=== PATIENT | female | born 1950 | race Caucasian/White ===

== ENCOUNTER → 2016-10-09 | Outpatient (CLI) | payer MEDICARE ==
--- NOTE | 2016-10-10 14:36 | MM ---
Reason for exam: screening (asymptomatic). Last mammogram was performed 1 year and 1 month ago. History: Patient is postmenopausal and has history of other cancer at age 58. Family history of premenopausal breast cancer in mother at age 40. Benign MG stereo VAD BX RT of the right breast, December 05, 2013. Benign left mammotome panel of the left breast, October 08, 2012. Benign left mammotome panel of the left breast, March 10, 2007. Benign left mammotome panel of the left breast, March 10, 2007. Taking estrogen for 12 years 10 months beginning at age 52. Physical Findings: A clinical breast exam by your physician is recommended on an annual basis and results should be correlated with mammographic findings. MG 3D Screening Mammo W/Cad Bilateral CC and MLO view(s) were taken. Prior study comparison: September 05, 2015, bilateral MG 3d screening mammo w/cad. June 22, 2014, right breast MG diagnostic mammo RT w CAD. The breast tissue is heterogeneously dense. This may lower the sensitivity of mammography. Finding: There are stable typically benign punctate calcifications. There is a chronic nodularity bilaterally. There is no dominant lesion. No significant changes in finding since September 05, 2015 and June 22, 2014. ASSESSMENT: Benign, BI-RAD 2 RECOMMENDATION: Routine screening mammogram of both breasts in 1 year.
== END | disposition home or self-care (01) ==
LOC: RADMAMWWP 09:44
PROVIDERS: ATTEND Obstetrics & Gynecology
DX: Z12.31 Encounter for screening mammogram for malignant neoplasm of breast (principal); Z80.3 Family history of malignant neoplasm of breast
CPT/HCPCS: 77063; G0202

== ENCOUNTER → 2017-11-20 | Outpatient (CLI) | payer MEDICARE ==
--- NOTE | 2017-11-20 14:46 | BD ---
EXAMINATION TYPE: Axial Bone Density DATE OF EXAM: 11/20/2017 COMPARISON: 01/28/2006 CLINICAL HISTORY: Height: 67 IN Weight: 130 LBS RISK FACTORS HISTORY OF: Active: YES Postmenopausal woman: AGE 46 Take estrogen and/or progesterone medications: YES How long: SINCE AGE 50 MEDICATIONS: Thyroid Medications: YES Which medication: Levothyroxine How Lon YEARS Additional Medications: VIT D, LEVOTHYROXINE, ESTRACE, CHOLESTEROL, EXAM MEASUREMENTS: Bone mineral densitometry was performed using the [employer] System. Bone mineral density as measured about the Lumbar spine is: ----- L1-L4(G/cm2): 0.996 T Score Values are as follows: ----- L2: -1.5 ----- L3: -1.8 ----- L4: -1.4 ----- L1-L4: -1.5 Bone mineral density has: Decreased -4.0% since study of: 01/28/2006 Bone mineral density about the R hip (g/cm2): 0.731 Bone mineral density about the L hip (g/cm2): 0.684 T Score values are as follows: -----R Neck: -2.2 -----L Neck: -2.5 -----R Total: -1.7 -----L Total: -1.9 Bone mineral density has: Decreased -6.5% since study of: 01/28/2006 IMPRESSION: Borderline Osteoporosis (T Score less than -2.5). There is increased fracture risk and therapy is usually indicated based on age. Re-Screen 1-2 years. NOTE: T-SCORE=SD OF THE YOUNG ADULT MEAN.
--- NOTE | 2017-11-24 07:29 | MM ---
Reason for exam: screening (asymptomatic). Last mammogram was performed 1 year and 1 month ago. History: Patient is postmenopausal and has history of other cancer at age 58. Family history of premenopausal breast cancer in mother at age 40. Benign MG stereo VAD BX RT of the right breast, December 05, 2013. Benign left mammotome panel of the left breast, October 08, 2012. Benign left mammotome panel of the left breast, March 10, 2007. Benign left mammotome panel of the left breast, March 10, 2007. Taking estrogen for 12 years 10 months beginning at age 52. Physical Findings: A clinical breast exam by your physician is recommended on an annual basis and results should be correlated with mammographic findings. MG 3D Screening Mammo W/Cad Bilateral CC and MLO view(s) were taken. Prior study comparison: October 09, 2016, bilateral MG 3d screening mammo w/cad. September 05, 2015, bilateral MG 3d screening mammo w/cad. The breast tissue is heterogeneously dense. This may lower the sensitivity of mammography. Previous mammotome biopsy in the right breast x 1 and in the left breast x 3. Nodular asymmetry medial posterior right breast does not seem to persist on the 3D images. Precautionary 6 month follow up recommended. ASSESSMENT: Probably benign, BI-RAD 3 RECOMMENDATION: Follow-up diagnostic mammogram of the right breast in 6 months.
== END | disposition home or self-care (01) ==
LOC: RADMAMWWP 09:36
PROVIDERS: ATTEND Obstetrics & Gynecology
DX: Z12.31 Encounter for screening mammogram for malignant neoplasm of breast (principal); Z13.820 Encounter for screening for osteoporosis; M81.0 Age-related osteoporosis without current pathological fracture; Z80.3 Family history of malignant neoplasm of breast
CPT/HCPCS: 77063; 77067; 77080

== ENCOUNTER → 2018-05-27 | Outpatient (CLI) | payer MEDICARE ==
--- NOTE | 2018-05-27 13:16 | MM ---
Reason for exam: follow-up at short interval from prior study. Last mammogram was performed 6 months ago. History: Patient is postmenopausal and has history of other cancer at age 58. Family history of premenopausal breast cancer in mother at age 40. Benign MG stereo VAD BX RT of the right breast, December 05, 2013. Benign left mammotome panel of the left breast, October 08, 2012. Benign left mammotome panel of the left breast, March 10, 2007. Benign left mammotome panel of the left breast, March 10, 2007. Taking estrogen for 12 years 10 months beginning at age 52. Physical Findings: Nurse did not find any significant physical abnormalities on exam. MG 3D Diag Mammo W/Cad RT CC and MLO view(s) were taken of the right breast. Prior study comparison: November 20, 2017, bilateral MG 3d screening mammo w/cad. October 09, 2016, bilateral MG 3d screening mammo w/cad. The breast tissue is heterogeneously dense. This may lower the sensitivity of mammography. Stable benign calcifications. There is no discrete abnormality including area of concern. No significant new findings when compared with previous films. These results were verbally communicated with the patient and result sheet given to the patient on 05/27/18. ASSESSMENT: Benign, BI-RAD 2 RECOMMENDATION: Return to routine screening mammogram schedule for both breasts.
== END | disposition home or self-care (01) ==
LOC: RADMAMWWP 10:07
PROVIDERS: ATTEND Obstetrics & Gynecology
DX: R92.8 Other abnormal and inconclusive findings on diagnostic imaging of breast (principal)
CPT/HCPCS: 77065; G0279; 77061

== ENCOUNTER → 2020-01-31 | Outpatient (CLI) | payer MEDICARE ==
--- NOTE | 2020-01-31 09:25 | CT ---
EXAMINATION TYPE: CT sinus wo con DATE OF EXAM: 01/31/2020 COMPARISON: None HISTORY: 69-year-old female Chronic sinusitis CT DLP: 600 mGycm Automated exposure control for dose reduction was used. TECHNIQUE: Noncontrast axial views of the paranasal sinuses were obtained. Coronal reconstructions pe rformed. FINDINGS: PARANASAL SINUSES: Only trace mucosal thickening seen at the bilateral maxillary infundibula. Otherwise, the frontal, et hmoid, maxillary and sphenoid sinuses are clear and well pneumatized. There is no air-fluid level. Reactive kenneth- osteogenesis is not seen. There is no destruction of the osseous galarza of the paranasal sinuses. THE NASAL CAVITY: The osteomeatal complexes are patent. The nasal septum is not significantly deviated. The imaged brain and orbits are normal in appearance. Bilateral scleral banding is present. Mastoid air cells and middle ear cavities are well pneumatized. Reformatted images confirm above findings. IMPRESSION: Only trace mucosal thickening at the bilateral maxillary infundibula. The remainder of the paranasal sinuses are clear.
== END | disposition home or self-care (01) ==
LOC: RADCTMAIN 07:54
PROVIDERS: ATTEND Otolaryngology
DX: J32.9 Chronic sinusitis, unspecified (principal)
CPT/HCPCS: 70486

== ENCOUNTER 2020-05-21 09:32 | Emergency (ER) | payer MEDICARE ==
[2020-05-21 09:41] VITALS: RESP 18
[2020-05-21] MEDS ORDERED: ONDANSETRON 4 MG/2 ML VIAL IVP STA (09:58)
[2020-05-21] MEDS ORDERED: SODIUM CHLORIDE 0.9% 1,000 ML IV STA (09:58)
--- NOTE | 2020-05-21 10:01 | ED ---
General Adult HPI - General Chief complaint: Syncope Stated complaint: syncope Time Seen by Provider: 05/21/20 09:37 Source: patient, RN/MD Mode of arrival: wheelchair Limitations: no limitations - History of Present Illness Initial comments: Dictation was produced using [employer] dictation software. please excuse any grammatical, word or spelling errors. This patient was cared for during a federal and state declared state of emergency secondary to Covid 19 Chief Complaint: 69-year-old female presents today after syncopal episode History of Present Illness: 69-year-old female she was at [facility]. She was assisted through getting a mammogram when all of a sudden she had an episode of syncope. She was unconscious for approximately 1 minute. Patient states she felt slightly nauseated prior to starting the mammogram. Patient states she feels much better however does have some lightheadedness. Patient denies any medical problems. She does however report history dyslipidemia and thyroid disease. She has no pain complaints. No constitutional symptoms. Patient states she felt well this morning. Last night she was in her usual state of health. The ROS documented in this emergency department record has been reviewed and confirmed by me. Those systems with pertinent positive or negative responses h ave been documented in the HPI. All other systems are other negative and/or noncontributory. PHYSICAL EXAM: General Impression: Alert and oriented x3, not in acute distress HEENT: Normocephalic atraumatic, extra-ocular movements intact, pupils equal and reactive to light bilaterally, mucous membranes moist. Cardiovascular: Heart regular rate and rhythm Chest: Able to complete full sentences, no retractions, no tachypnea Abdomen: abdomen soft, non-tender, non-distended, no organomegaly Musculoskeletal: Pulses present and equal in all extremities, no peripheral edema Motor: no focal deficits noted Neurological: CN II-XII grossly intact, no focal motor or sensory deficits noted Skin: Intact with no visualized rashes Psych: Normal affect and mood ED course: 69-year-old female presents with syncopal episode during mammogram. EKGs benign. Vital signs upon arrival are within acceptable limits. Laboratory evaluation obtained. CBC unremarkable. Metabolic panel shows slight hypokalemia of 3.3. Concerns for dehydration BUN of 24 and a creatinine of 0.69. Rest of labs unremarkable. Patient observed in the emergency department for approximately 2 hours. She is reevaluated at 11:20 AM with stable medical condition. Labs and EKG were discussed with patient. Disposition options were discussed. Patient would like to be discharged to home with follow-up with primary care physician. Patient told that she must hydrate herself well. Clinical presentation likely secondary to vasovagal syncope and dehydration. EKG interpretation: Ventricular rate 81, normal sinus rhythm,. Interval 166, QRS 84, QTC 476 no prolonged QT, no A RVD, no WPW, no HOCM. No OR prolongation, no QTC prolongation, no ST or T-wave changes noted. Overall, this EKG is unremarkable - Related Data Home Medications Medication Instructions Recorded Confirmed ALPRAZolam [Xanax] 0.25 mg PO HS PRN 05/21/20 05/21/20 Cholecalciferol [Vitamin D3 (25 2,000 unit PO MOTUWETHFRSA 05/21/20 05/21/20 Mcg = 1000 Iu)] Escitalopram [Lexapro] 5 mg PO MOTUWETHFRSA 05/21/20 05/21/20 Famotidine [Pepcid] 20 mg PO MOTUWETHFRSA 05/21/20 05/21/20 Levothyroxine Sodium [Synthroid] 112 mcg PO MOTUWETHFRSA 05/21/20 05/21/20 Magnesium Oxide [Suazo] 500 mg PO MOWEFR 05/21/20 05/21/20 Multivitamins, Thera [Multivitamin 1 tab PO MOTUWETHFRSA 05/21/20 05/21/20 (formulary)] Pravastatin Sodium [Pravachol] 10 mg PO MOWEFR 05/21/20 05/21/20 Allergies Allergy/AdvReac Type Severity Reaction Status Date / Time No Known Allergies Allergy Verified 05/21/20 11:13 Review of Systems ROS Statement: Those systems with pertinent positive or pertinent negative responses have been documented in the HPI. ROS Other: All systems not noted in ROS Statement are negative. Past Medical History Past Medical History: Hyperlipidemia, Thyroid Disorder History of Any Multi-Drug Resistant Organisms: None Reported Past Surgical History: Section, Cholecystectomy, Hysterectomy Additional Past Surgical History / Comment(s): Thyroidectomy, eye surgery Past Psychological History: No Psychological Hx Reported Smoking Status: Never smoker Past Alcohol Use History: None Reported Past Drug Use History: None Reported General Exam Limitations: no limitations Course Vital Signs 05/21/20 05/21/20 09:34 10:18 Temperature 98.1 F Pulse Rate 97 67 Respiratory 18 18 Rate Blood Pressure 179/97 142/79 O2 Sat by Pulse 97 97 Oximetry Medical Decision Making - Lab Data Result diagrams: 05/21/20 10:08 05/21/20 10:08 Lab Results 05/21/20 05/21/20 Range/Units 10:08 10:08 WBC 9.0 (3.8-10.6) k/uL RBC 4.10 (3.80-5.40) m/uL Hgb 13.1 (11.4-16.0) gm/dL Hct 39.3 (34.0-46.0) % MCV 96.0 (80.0-100.0) fL MCH 31.9 (25.0-35.0) pg MCHC 33.2 (31.0-37.0) g/dL RDW 13.2 (11.5-15.5) % Plt Count 272 (150-450) k/uL MPV 8.3 Neutrophils % 42 % Lymphocytes % 42 % Monocytes % 6 % Eosinophils % 5 % Basophils % 1 % Neutrophils # 3.8 (1.3-7.7) k/uL Lymphocytes # 3.8 (1.0-4.8) k/uL Monocytes # 0.6 (0-1.0) k/uL Eosinophils # 0.4 (0-0.7) k/uL Basophils # 0.1 (0-0.2) k/uL Sodium 140 (137-145) mmol/L Potassium 3.3 L (3.5-5.1) mmol/L Chloride 104 (98-107) mmol/L Carbon Dioxide 29 (22-30) mmol/L Anion Gap 7 mmol/L BUN 24 H (7-17) mg/dL Creatinine 0.69 (0.52-1.04) mg/dL Est GFR (CKD-EPI)AfAm >90 (>60 ml/min/1.73 sqM) Est GFR (CKD-EPI)NonAf 89 (>60 ml/min/1.73 sqM) Glucose 133 H (74-99) mg/dL Calcium 9.0 (8.4-10.2) mg/dL Magnesium 2.0 (1.6-2.3) mg/dL Total Bilirubin 0.5 (0.2-1.3) mg/dL AST 26 (14-36) U/L ALT 26 (4-34) U/L Alkaline Phosphatase 97 (38-126) U/L Total Protein 7.5 (6.3-8.2) g/dL Albumin 4.0 (3.5-5.0) g/dL Disposition Clinical Impression: Syncope Disposition: HOME SELF-CARE Condition: Good Instructions (If sedation given, give patient instructions): Syncope (ED), Dehydration (ED) Is patient prescribed a controlled substance at d/c from ED?: No Referrals: Sarai Valenzuela MD [Primary Care Provider] - 1-2 days Time of Disposition: 11:20
[2020-05-21 10:26] LABS: ALT 26 U/L (4-34); AST 26 U/L (14-36); African American GFR (CKD) >90 (>60 ml/min/1.73 sqM); Alkaline Phosphatase 97 U/L (38-126); Anion Gap 7 mmol/L; Blood Urea Nitrogen 24 mg/dL (7-17); Carbon Dioxide 29 mmol/L (22-30); Chloride 104 mmol/L (98-107); Glucose 133 mg/dL (74-99); Non-African American GFR(CKD) 89 (>60 ml/min/1.73 sqM); Potassium 3.3 mmol/L (3.5-5.1); Sodium 140 mmol/L (137-145); Total Bilirubin 0.5 mg/dL (0.2-1.3); Total Protein 7.5 g/dL (6.3-8.2)
[2020-05-21 10:37] LABS: Basophils # (A) 0.1 k/uL (0-0.2); Basophils % (A) 1 %; Eosinophils # (A) 0.4 k/uL (0-0.7); Eosinophils % (A) 5 %; HCT 39.3 % (34.0-46.0); HGB 13.1 gm/dL (11.4-16.0); Lymphocytes # (A) 3.8 k/uL (1.0-4.8); Lymphocytes % (A) 42 %; MCH 31.9 pg (25.0-35.0); MCHC 33.2 g/dL (31.0-37.0); Mean Platelet Volume 8.3; Monocytes # (A) 0.6 k/uL (0-1.0); Monocytes % (A) 6 %; Neutrophils # (A) 3.8 k/uL (1.3-7.7); Neutrophils % (A) 42 %; Platelet Count 272 k/uL (150-450); RDW 13.2 % (11.5-15.5)
[2020-05-21] MEDS ORDERED: POTASSIUM CHLORIDE ER 20 MEQ TAB.ER PO STA (11:18)
[2020-05-21] MEDS ORDERED: ONDANSETRON 4 MG ODT STARTER PACK 2 TAB BTL PO STA (11:20)
[2020-05-21 12:17] VITALS: BP 135/72; PULSE 81; TEMP 98
== END 2020-05-21 12:16 | disposition home or self-care (01) ==
LOC: EC 09:32
DX: R55 Syncope and collapse (principal); E87.6 Hypokalemia; E07.9 Disorder of thyroid, unspecified; E78.5 Hyperlipidemia, unspecified; Z79.899 Other long term (current) drug therapy; Z79.890 Hormone replacement therapy; Z90.710 Acquired absence of both cervix and uterus; Z90.49 Acquired absence of other specified parts of digestive tract
CPT/HCPCS: 36415; 93005; 80053; 83735; 85025; 99284; 96374; 96361; J2405; S0119

== ENCOUNTER → 2020-05-21 | Outpatient (CLI) | payer MEDICARE ==
--- NOTE | 2020-05-23 10:39 | MM ---
Reason for exam: clinical finding. Last mammogram was performed 1 year and 6 months ago. History: Patient is postmenopausal and has history of other cancer at age 58. Family history of premenopausal breast cancer in mother at age 40. Benign MG stereo VAD BX RT of the right breast, December 05, 2013. Benign left mammotome panel of the left breast, October 08, 2012. Benign left mammotome panel of the left breast, March 10, 2007. Benign left mammotome panel of the left breast, March 10, 2007. Took estrogen for 12 years 10 months beginning at age 52. Physical Findings: Nurse did not find any significant physical abnormalities on exam. MG 3D Diag Mammo W/Cad LEIGHANN Bilateral CC and MLO view(s) were taken. Prior study comparison: December 01, 2018, bilateral MG 3d screening mammo w/cad. May 27, 2018, right breast MG 3d diag mammo w/cad RT. The breast tissue is heterogeneously dense. This may lower the sensitivity of mammography. Stable benign calcifications. There is no discrete abnormality. No significant new findings when compared with previous films. These results were verbally communicated with the patient and result sheet given to the patient on 05/23/20. ASSESSMENT: Benign, BI-RAD 2 RECOMMENDATION: Routine screening mammogram of both breasts in 1 year. Manage patient on a clinical basis.
== END | disposition home or self-care (01) ==
LOC: RADMAMWWP 08:52
PROVIDERS: ATTEND Obstetrics & Gynecology
DX: N64.52 Nipple discharge (principal)
CPT/HCPCS: 77066; G0279; 77062

== ENCOUNTER → 2020-05-23 | Outpatient (CLI) | payer MEDICARE | END | disposition home or self-care (01) | LOC: RADMAMWWP 10:03 | PROVIDERS: ATTEND Obstetrics & Gynecology | DX: Z53.9 Procedure and treatment not carried out, unspecified reason (principal) ==

== ENCOUNTER → 2021-08-20 | Outpatient (CLI) | payer MEDICARE ==
--- NOTE | 2021-08-20 10:18 | MR ---
EXAMINATION TYPE: MR brain wo/w con DATE OF EXAM: 08/20/2021 COMPARISON: NONE HISTORY: Daily persistent headaches. TECHNIQUE: Multiplanar, multisequence images of the brain and brainstem is performed without and with IV contras t, utilizing 6.5 mL intravenous Gadavist . FINDINGS: Diffusion weighted images demonstrate no evidence of a recent infarct or other diffusion ab normality. The ventricular system and cisternal spaces are normal in size and appearance. The brai n volume is age appropriate. There are scattered focal and confluent areas of T2 hyperintensity seen throughout the white matter bilaterally greatest at the periventricular levels. Midline structures demonstrate normal morphology. The craniocervical junction appears within normal limits. Post contrast images demonstrate no abnormal enhancement. There is absent right A1 segment w ith filling of the right A2 segment due to patent anterior communicating artery, normal variant. Evelyn nant left vertebral artery is noted. The dural venous sinuses appear patent. The visualized sinuses are clear and the globes are intact. IMPRESSION: [id number] nonspecific white matter changes may be on basis of altered vascular mec hanics related to product of chronic migraine headaches and/or product of small vessel ischemic abdi ge in patient of this age.
== END | disposition home or self-care (01) ==
LOC: RADMRIMAIN 07:57
PROVIDERS: ATTEND Family Medicine
DX: G44.52 New daily persistent headache (NDPH) (principal)
CPT/HCPCS: 70553; A9585

== ENCOUNTER → 2021-09-30 | Outpatient (CLI) | payer MEDICARE ==
--- NOTE | 2021-10-01 08:21 | MM ---
Reason for exam: screening (asymptomatic). Last mammogram was performed 1 year and 4 months ago. History: Patient is postmenopausal and has history of other cancer at age 58. Family history of premenopausal breast cancer in mother at age 40. Benign MG stereo VAD BX RT of the right breast, December 05, 2013. Benign left mammotome panel of the left breast, October 08, 2012. Benign left mammotome panel of the left breast, March 10, 2007. Benign left mammotome panel of the left breast, March 10, 2007. Took estrogen for 12 years 10 months beginning at age 52. Physical Findings: A clinical breast exam by your physician is recommended on an annual basis and results should be correlated with mammographic findings. MG 3D Screening Mammo W/Cad Bilateral CC and MLO view(s) were taken. Prior study comparison: May 21, 2020, bilateral MG 3d diag mammo w/cad LEIGHANN. December 01, 2018, bilateral MG 3d screening mammo w/cad. November 20, 2017, bilateral MG 3d screening mammo w/cad. The breast tissue is extremely dense which could obscure a lesion on mammography. There are benign appearing round, vascular, dystrophic calcifications bilaterally. Previous mammotome biopsy in the right and left breast. There is no discrete abnormality. Benign bilateral axillary lymph nodes redemonstrated. ASSESSMENT: Benign, BI-RAD 2 RECOMMENDATION: Routine screening mammogram of both breasts in 1 year. Some advise bilateral ultrasound surveillance in patient with dense tissue.
== END | disposition home or self-care (01) ==
LOC: RADMAMWWP 10:14
PROVIDERS: ATTEND Family Medicine
DX: Z12.31 Encounter for screening mammogram for malignant neoplasm of breast (principal); Z78.0 Asymptomatic menopausal state; Z80.3 Family history of malignant neoplasm of breast
CPT/HCPCS: 77063; 77067

== ENCOUNTER → 2021-10-24 | Outpatient (CLI) | payer MEDICARE ==
--- NOTE | 2021-10-25 07:57 | BD ---
EXAMINATION TYPE: Axial Bone Density DATE OF EXAM: 10/24/2021 COMPARISON: NONE CLINICAL HISTORY: 71 year old Female. ICD-10 CODE: Z78.0,ASYMPTOMATIC MENOPAUSAL,M81.0 OSTEOPOROSI S Height: 68 Weight: 146.8 FRAX RISK QUESTIONS: Alcohol (3 or more units per day): no Family History (Parent hip fracture): no Glucocorticoids (More than 3mos): no (Ex: prednisone, prednisolone, methylprednisolone, dexamethasone, and hydrocortisone). History of Fracture in Adulthood: no Secondary Osteoporosis: 1. Type 1 Diabetes: no 2. Hyperthyroidism: no 3. Menopause before 45: no 4. Malnutrition: no 5. Chronic liver disease: no Rheumatoid Arthritis: no Current Tobacco Use: no RISK FACTORS HISTORY OF: Surgery to Spine/Hip(right/left)/Wrist (right/left): no Family History of Osteoporosis: no Active: no Diet low in dairy products/other sources of calcium: yes Postmenopausal woman: yes Lost more than 2 inches in height since high school: no MEDICATIONS: Thyroid Medications: thyroid How Lon years Additional History: EXAM MEASUREMENTS: Bone mineral densitometry was performed using the [employer] System. Bone mineral density as measured about the Lumbar spine is: ----- L1-L4(G/cm2): 0.948 T Score Values are as follows: ----- L1: -2.2 ----- L2: -1.9 ----- L3: -2.1 ----- L4: -1.8 ----- L1-L4: -1.9 Bone mineral density has: DECREASED -3.8 % since study of: 11.20.2017 Bone mineral density about the R hip (g/cm2): 0.663 Bone mineral density about the L hip (g/cm2): 0.633 T Score values are as follows: -----R Neck: -2.7 -----L Neck: -2.9 -----R Total: -1.9 -----L Total: -2.1 Bone mineral density has: decreased -3.2 % since study of: 11.20.2017 FRAX%s: The graph provided illustrates a 17.7% chance for a major osteoporotic fx and a 6.1% chance f or the hips probability for fx in 10 years time. IMPRESSION: Osteoporosis (T Score less than -2.5). There is increased fracture risk and therapy is usually indicated based on age. Re-Screen 1-2 years. NOTE: T-SCORE=SD OF THE YOUNG ADULT MEAN.
== END | disposition home or self-care (01) ==
LOC: RADBDWWP 09:54
PROVIDERS: ATTEND Obstetrics & Gynecology
DX: M81.0 Age-related osteoporosis without current pathological fracture (principal); Z78.0 Asymptomatic menopausal state
CPT/HCPCS: 77080

== ENCOUNTER → 2022-11-12 | Outpatient (CLI) | payer MEDICARE ==
--- NOTE | 2022-11-13 08:08 | MM ---
Reason for Exam: Screening (asymptomatic). Last mammogram was performed 1 year(s) and 1 month(s) ago. Patient History: Menarche at age 12. First Full-Term at age 18. Right ovary removed at age 46. Hysterectomy at age 46. Postmenopausal. Other cancer, age 58. Estrogen for 12 years, 10 months, from age 52 until age 68. 12/05/2013, Benign Core Biopsy on the right side. 10/08/2012, Benign Core Biopsy on the left side. 03/10/2007, Benign Core Biopsy on the left side. 03/10/2007, Benign Core Biopsy on the left side. Mother had breast cancer, age 40. Risk Values: Gladys 5 year model risk: 4.9%. NCI Lifetime model risk: 12.3%. Prior Study Comparison: 10/09/2016 Bilateral Screening Mammogram, [facility]. 11/20/2017 Bilateral Screening Mammogram, [facility]. 05/27/2018 Right Diagnostic Mammogram, [facility]. 12/01/2018 Bilateral Screening Mammogram, [facility]. 05/21/2020 Bilateral Diagnostic Mammogram, [facility]. 09/30/2021 Bilateral Screening Mammogram, [facility]. Tissue Density: The breast tissue is heterogeneously dense. This may lower the sensitivity of mammography. Findings: Analyzed By CAD. There is no suspicious group of microcalcifications or new suspicious mass in either breast. Overall Assessment: Benign, BI-RAD 2 Management: Screening Mammogram of both breasts in 1 year. . Patient should continue monthly self-breast exams. A clinical breast exam by your physician is recommended on an annual basis. This exam should not preclude additional follow-up of suspicious palpable abnormalities. Note on Gladys scores and lifetime risk: 1. A Gladys score greater than 3% is considered moderate risk. If this is the case, consider specialist referral to assess eligibility for a risk reducing agent. 2. If overall lifetime risk for the development of breast cancer is 20% or higher, the patient may qualify for future screening with alternating mammogram and breast MRI. Electronically signed and approved by: Carter Quiroz M.D. Radiologis
== END | disposition home or self-care (01) ==
LOC: RADMAMWWP 08:00
PROVIDERS: ATTEND Family Medicine
DX: Z12.31 Encounter for screening mammogram for malignant neoplasm of breast (principal); Z78.0 Asymptomatic menopausal state; Z80.3 Family history of malignant neoplasm of breast
CPT/HCPCS: 77063; 77067

== ENCOUNTER 2023-02-10 13:00 | Emergency (ER) | payer MEDICARE ==
[2023-02-10 13:08] VITALS: RESP 18
--- NOTE | 2023-02-10 13:17 | ED ---
General Adult HPI - General Source: patient, RN notes reviewed Mode of arrival: wheelchair Limitations: no limitations <Omero Haque - Last Filed: 02/10/23 13:16> - General Source: RN notes reviewed, old records reviewed Mode of arrival: wheelchair Limitations: no limitations - History of Present Illness -: days(s) Location: abdomen Radiation: non-radiation Severity scale (1-10): 4 Quality: aching Consistency: constant Improves with: none Worsens with: none Associated Symptoms: denies other symptoms Treatments Prior to Arrival: none <Chung Alvarez - Last Filed: 02/13/23 21:53> - General Chief complaint: Weakness Stated complaint: Weakness Time Seen by Provider: 02/10/23 13:16 - History of Present Illness Initial comments: 72-year-old female presents emergency department for evaluation of generalized weakness. Patient states she's not felt well states she's been treated for kidney some possible infection. Patient states she was recently placed on Bactrim which is only symptoms worse. She does complain of left-sided discomfort. Denies chest pain. (Omero Haque) This is a 72-year-old female to the emergency department for evaluation today. Patient presents today for evaluation regards to weakness nausea occasional vomiting abdominal pain flank pain severe left-sided flank pain with recent diagnosis of kidney stones and infection, patient is brought again placed on Bactrim taken as prescribed with symptoms are worsening and she has not passed a kidney stones and symptoms started (Chung Alvarez) - Related Data Home Medications Medication Instructions Recorded Confirmed ALPRAZolam [Xanax] 0.25 mg PO HS PRN 05/21/20 02/12/23 Cholecalciferol [Vitamin D3 (25 2,000 unit PO MOTUWETHFRSA 05/21/20 02/12/23 Mcg = 1000 Iu)] Famotidine [Pepcid] 20 mg PO MOTUWETHFRSA 05/21/20 02/12/23 Levothyroxine Sodium [Synthroid] 112 mcg PO MOTUWETHFRSA 05/21/20 02/12/23 Magnesium Oxide [Suazo] 500 mg PO MOWEFR 05/21/20 02/12/23 Pravastatin Sodium [Pravachol] 10 mg PO DAILY 05/21/20 02/12/23 Acetaminophen-Codeine 300-30mg 1 tab PO Q6H PRN 02/12/23 02/12/23 [Tylenol w/codeine #3] Allergies Allergy/AdvReac Type Severity Reaction Status Date / Time No Known Allergies Allergy Verified 02/12/23 15:36 Review of Systems ROS Other: All systems not noted in ROS Statement are negative. <GarlandOmero Jaime - Last Filed: 02/10/23 13:16> ROS Other: All systems not noted in ROS Statement are negative. <Chung Alvarez - Last Filed: 02/13/23 21:53> ROS Statement: Those systems with pertinent positive or pertinent negative responses have been documented in the HPI. Past Medical History Past Medical History: Hyperlipidemia, Thyroid Disorder History of Any Multi-Drug Resistant Organisms: None Reported Past Surgical History: Section, Cholecystectomy, Hysterectomy Additional Past Surgical History / Comment(s): Thyroidectomy, eye surgery Past Psychological History: No Psychological Hx Reported Smoking Status: Never smoker Past Alcohol Use History: None Reported Past Drug Use History: None Reported <Omero Haque - Last Filed: 02/10/23 13:16> General Exam Limitations: no limitations <Omero Haque Jaime - Last Filed: 02/10/23 13:16> General appearance: alert, in no apparent distress Head exam: Present: atraumatic, normocephalic, normal inspection Eye exam: Present: normal appearance, PERRL, EOMI. Absent: scleral icterus, conjunctival injection, periorbital swelling ENT exam: Present: normal exam, mucous membranes moist Neck exam: Present: normal inspection. Absent: tenderness, meningismus, lymphadenopathy Respiratory exam: Present: normal lung sounds bilaterally. Absent: respiratory distress, wheezes, rales, rhonchi, stridor Cardiovascular Exam: Present: regular rate, normal rhythm, normal heart sounds. Absent: systolic murmur, diastolic murmur, rubs, gallop, clicks GI/Abdominal exam: Present: soft, normal bowel sounds. Absent: distended, tenderness, guarding, rebound, rigid Extremities exam: Present: normal inspection, full ROM, normal capillary refill. Absent: tenderness, pedal edema, joint swelling, calf tenderness Back exam: Present: normal inspection Neurological exam: Present: alert, oriented X3, CN II-XII intact Psychiatric exam: Present: normal affect, normal mood Skin exam: Present: warm, dry, intact, normal color. Absent: rash <Chung Alvarez - Last Filed: 02/13/23 21:53> - General Exam Comments Initial Comments: Visual Physical Exam Vital signs reviewed General: Well-appearing, nontoxic, no acute distress. Head: Normocephalic, atraumatic Eyes: PERRLA, EOMI ENT: Airway patent Chest: Nonlabored breathing Skin: No visual rash, normal skin tone Neuro: Alert and oriented 3 Musculoskeletal: No gross abnormalities (Omero Haque) Course <Chung Alvarez - Last Filed: 02/13/23 21:53> Vital Signs 02/10/23 02/10/23 13:05 18:47 Temperature 97.7 F 97.9 F Pulse Rate 90 80 Respiratory 18 18 Rate Blood Pressure 132/82 146/72 O2 Sat by Pulse 98 97 Oximetry - Reevaluation(s) Reevaluation #1: 02/10/23 16:05 Medical record is reviewed (Chung Alvarez) Reevaluation #2: 02/10/23 17:24 Patient symptoms are improved here in the ER (Chung Alvarez) Reevaluation #3: 02/10/23 17:24 Patient informed of results questions answered (Chung Alvarez) Reevaluation #4: 02/10/23 16:05 Was pt. sent in by a medical professional or institution ([facility]endoza, [employer], urgent care, hospital, or care home...) When possible be specific @ -no Did you speak to anyone other than the patient for history (EMS, parent, family, police, friend...)? What history was obtained from this source @ -no Did you review nursing and triage notes (agree or disagree)? Why? @ -agree Are old charts reviewed (outside hosp., previous admission, EMS record, old EKG, old radiological studies, urgent care reports/EKG's, care home records)? Report findings @ -yes Differential Diagnosis (chest pain, altered mental status, abdominal pain women, abdominal pain men, vaginal bleeding, weakness, fever, dyspnea, syncope, headache, dizziness, GI bleed, back pain, seizure, CVA, palpatations, mental health, musculoskeletal)? @ -prior EKG interpreted by me (3pts min.). @ -no X-rays interpreted by me (1pt min.). @ -no CT interpreted by me (1pt min.). @ -yes U/S interpreted by me (1pt. min.). @ -no What testing was considered but not performed or refused? (CT, X-rays, U/S, labs)? Why? @ -none What meds were considered but not given or refused? Why? @ -none Did you discuss the management of the patient with other professionals (professionals i.e. , PA, [employer], lab, RT, psych nurse, perinatal social worker, production bow maker, teacher, disabilities services officer, case resolution specialist)? Give summary @ -no Was smoking cessation discussed for >3mins.? @ -no Was critical care preformed (if so, how long)? @ -no Were there social determinants of health that impacted care today? How? (Homelessness, low income, unemployed, alcoholism, drug addiction, transportation, low edu. Level, literacy, decrease access to med. care, [facility], rehab)? @ -none Was there de-escalation of care discussed even if they declined (Discuss DNR or withdrawal of care, Hospice)? DNR status @ -no What co-morbidities impacted this encounter? (DM, HTN, Smoking, COPD, CAD, Cancer, CVA, ARF, Chemo, Hep., AIDS, mental health diagnosis, sleep apnea, morbid obesity)? @ -none Was patient admitted / discharged? Hospital course, mention meds given and route, prescriptions, significant lab abnormalities, going to OR and other pertinent info. @ - 72 female to the emergency department for evaluation positive left-sided ureterolithiasis kidney stone. Patient will follow-up with Dr. Ho in the office Discharged Undiagnosed new problem with uncertain prognosis? @ -no Drug Therapy requiring intensive monitoring for toxicity (Heparin, Nitro, Insulin, Cardizem)? @ -no Were any procedures done? @ -no Diagnosis/symptom? @ -Left ureteral stone Acute, or Chronic, or Acute on Chronic? @ -Acute Uncomplicated (without systemic symptoms) or Complicated (systemic symptoms)? @ -Complicated Side effects of treatment? @ -no Exacerbation, Progression, or Severe Exacerbation? @ -exacerbation Poses a threat to life or bodily function? How? (Chest pain, USA, NM, pneumonia, PE, COPD, DKA, ARF, appy, cholecystitis, CVA, Diverticulitis, Homicidal, Suicidal, threat to staff... and all critical care pts) @ -no (Chung Alvarez) Reevaluation #5: 02/10/23 17:25 Differential Weakness: Hypoglycemia, shock, sepsis, hyponatremia, anemia, infection, NM, ETOH, adverse medicine reaction, overdose, stroke, this is not meant to be an all-inclusive list. Differential Abdominal Pain Women: Appendicitis, Cholecystitis, diverticulosis, ischemic bowel, pancreatitis, hepatitis, UTI, gastroenteritis, AAA, incarcerated hernia, bowel obstruction, constipation, inflammatory bowel, hepatitis, peptic ulcer disease, splenic infarction, perforated viscus, vulvitis, ovarian torsion, PID, kidney stone, placenta abruption, this is not meant to be an all-inclusive list (Chung Alvarez) Medical Decision Making <Omero Haque - Last Filed: 02/10/23 13:16> - Lab Data Result diagrams: 02/10/23 15:16 02/10/23 15:16 - Radiology Data Radiology results: report reviewed (CT head and pelvis positive for left-sided kidney stone), image reviewed <Chung Alvarez - Last Filed: 02/13/23 21:53> - Medical Decision Making I performed a quick note portion of discharged signed Omero Haque PA-C (Omero Haque) 72 female to the emergency department for evaluation positive left-sided ureterolithiasis kidney stone. Patient will follow-up with Dr. Ho in the office (Chung Alvarez) - Lab Data Lab Results 02/10/23 02/10/23 02/10/23 Range/Units 15:16 15:16 15:16 WBC 7.0 (3.8-10.6) k/uL RBC 4.10 (3.80-5.40) m/uL Hgb 12.9 (11.4-16.0) gm/dL Hct 39.1 (34.0-46.0) % MCV 95.3 (80.0-100.0) fL MCH 31.4 (25.0-35.0) pg MCHC 32.9 (31.0-37.0) g/dL RDW 13.1 (11.5-15.5) % Plt Count 208 (150-450) k/uL MPV 8.4 Neutrophils % 75 % Lymphocytes % 13 % Monocytes % 9 % Eosinophils % 1 % Basophils % 1 % Neutrophils # 5.2 (1.3-7.7) k/uL Lymphocytes # 0.9 L (1.0-4.8) k/uL Monocytes # 0.6 (0-1.0) k/uL Eosinophils # 0.0 (0-0.7) k/uL Basophils # 0.0 (0-0.2) k/uL Sodium 137 (137-145) mmol/L Potassium 3.8 (3.5-5.1) mmol/L Chloride 102 (98-107) mmol/L Carbon Dioxide 27 (22-30) mmol/L Anion Gap 8 mmol/L BUN 27 H (7-17) mg/dL Creatinine 1.07 H (0.52-1.04) mg/dL Est GFR (CKD-EPI)AfAm 60 (>60 ml/min/1.73 sqM) Est GFR (CKD-EPI)NonAf 52 (>60 ml/min/1.73 sqM) Glucose 134 H (74-99) mg/dL Plasma Lactic Acid Gio (0.7-2.0) mmol/L Calcium 9.1 (8.4-10.2) mg/dL Magnesium 2.0 (1.6-2.3) mg/dL Total Bilirubin 0.5 (0.2-1.3) mg/dL AST 27 (14-36) U/L ALT 22 (4-34) U/L Alkaline Phosphatase 133 H (38-126) U/L Total Protein 7.6 (6.3-8.2) g/dL Albumin 4.0 (3.5-5.0) g/dL Lipase 66 (23-300) U/L Urine Color Colorless Urine Appearance Clear (Clear) Urine pH 5.5 (5.0-8.0) Ur Specific [place] 1.009 (1.001-1.035) Urine Protein Negative (Negative) Urine Glucose (UA) Negative (Negative) Urine Ketones Negative (Negative) Urine Blood 0.1 (Negative) Urine Nitrite Negative (Negative) Urine Bilirubin Negative (Negative) Urine Urobilinogen <2.0 (<2.0) mg/dL Ur Leukocyte Esterase Moderate (Negative) Urine RBC 4 (0-5) /hpf Urine WBC 6 H (0-5) /hpf Urine Bacteria Rare H (None) /hpf Urine Mucus Rare H (None) /hpf 02/10/23 Range/Units 15:16 WBC (3.8-10.6) k/uL RBC (3.80-5.40) m/uL Hgb (11.4-16.0) gm/dL Hct (34.0-46.0) % MCV (80.0-100.0) fL MCH (25.0-35.0) pg MCHC (31.0-37.0) g/dL RDW (11.5-15.5) % Plt Count (150-450) k/uL MPV Neutrophils % % Lymphocytes % % Monocytes % % Eosinophils % % Basophils % % Neutrophils # (1.3-7.7) k/uL Lymphocytes # (1.0-4.8) k/uL Monocytes # (0-1.0) k/uL Eosinophils # (0-0.7) k/uL Basophils # (0-0.2) k/uL Sodium (137-145) mmol/L Potassium (3.5-5.1) mmol/L Chloride (98-107) mmol/L Carbon Dioxide (22-30) mmol/L Anion Gap mmol/L BUN (7-17) mg/dL Creatinine (0.52-1.04) mg/dL Est GFR (CKD-EPI)AfAm (>60 ml/min/1.73 sqM) Est GFR (CKD-EPI)NonAf (>60 ml/min/1.73 sqM) Glucose (74-99) mg/dL Plasma Lactic Acid Gio 1.2 (0.7-2.0) mmol/L Calcium (8.4-10.2) mg/dL Magnesium (1.6-2.3) mg/dL Total Bilirubin (0.2-1.3) mg/dL AST (14-36) U/L ALT (4-34) U/L Alkaline Phosphatase (38-126) U/L Total Protein (6.3-8.2) g/dL Albumin (3.5-5.0) g/dL Lipase (23-300) U/L Urine Color Urine Appearance (Clear) Urine pH (5.0-8.0) Ur Specific [place] (1.001-1.035) Urine Protein (Negative) Urine Glucose (UA) (Negative) Urine Ketones (Negative) Urine Blood (Negative) Urine Nitrite (Negative) Urine Bilirubin (Negative) Urine Urobilinogen (<2.0) mg/dL Ur Leukocyte Esterase (Negative) Urine RBC (0-5) /hpf Urine WBC (0-5) /hpf Urine Bacteria (None) /hpf Urine Mucus (None) /hpf Disposition <Omero Haque - Last Filed: 02/10/23 13:16> Is patient prescribed a controlled substance at d/c from ED?: No <Chung Alvarez - Last Filed: 02/13/23 21:53> Clinical Impression: Left ureteral calculus Disposition: HOME SELF-CARE Condition: Good Instructions (If sedation given, give patient instructions): Ureteral Stones (ED) Referrals: Sarai Valenzuela MD [Primary Care Provider] - 1-2 days Tomasz Ho MD [STAFF PHYSICIAN] - 1-2 days
[2023-02-10] MEDS ORDERED: ONDANSETRON 4 MG/2 ML VIAL IVP STA (15:29)
[2023-02-10] MEDS ORDERED: KETOROLAC 15 MG/ML 1 ML VIAL IVP STA (15:29)
[2023-02-10] MEDS ORDERED: SODIUM CHLORIDE 0.9% 1,000 ML IV STA ×2 (15:29)
[2023-02-10] MEDS ORDERED: MORPHINE SULFATE 4 MG/ML SYRINGE IVP STA (15:30)
[2023-02-10 15:41] LABS: Basophils % (A) 1 %; Eosinophils % (A) 1 %; HCT 39.1 % (34.0-46.0); HGB 12.9 gm/dL (11.4-16.0); Lymphocytes # (A) 0.9 k/uL (1.0-4.8); Lymphocytes % (A) 13 %; MCH 31.4 pg (25.0-35.0); MCHC 32.9 g/dL (31.0-37.0); MCV 95.3 fL (80.0-100.0); Mean Platelet Volume 8.4; Monocytes # (A) 0.6 k/uL (0-1.0); Monocytes % (A) 9 %; Neutrophils # (A) 5.2 k/uL (1.3-7.7); Neutrophils % (A) 75 %; Platelet Count 208 k/uL (150-450); RDW 13.1 % (11.5-15.5)
[2023-02-10 15:51] LABS: ALT 22 U/L (4-34); AST 27 U/L (14-36); African American GFR (CKD) 60 (>60 ml/min/1.73 sqM); Alkaline Phosphatase 133 U/L (38-126); Anion Gap 8 mmol/L; Blood Urea Nitrogen 27 mg/dL (7-17); Calcium 9.1 mg/dL (8.4-10.2); Carbon Dioxide 27 mmol/L (22-30); Chloride 102 mmol/L (98-107); Glucose 134 mg/dL (74-99); Lipase 66 U/L (23-300); Non-African American GFR(CKD) 52 (>60 ml/min/1.73 sqM); Potassium 3.8 mmol/L (3.5-5.1); Sodium 137 mmol/L (137-145); Total Bilirubin 0.5 mg/dL (0.2-1.3); Total Protein 7.6 g/dL (6.3-8.2)
--- NOTE | 2023-02-10 16:30 | CT ---
EXAMINATION TYPE: CT abdomen pelvis wo con DATE OF EXAM: 02/10/2023 COMPARISON: None HISTORY: Rt flank pain CT DLP: 413.2 mGycm Examination of the solid and hollow viscera is limited given the lack of contrast. FINDINGS: LUNG BASES: No evidence for nodule. No evidence for infiltrate. LIVER/GB: The gallbladder is unremarkable. No space-occupying hepatic lesion. PANCREAS: No pancreatic mass identified. No inflammatory process seen. SPLEEN: No evidence for splenomegaly. No intrasplenic lesions seen. ADRENALS: No adrenal nodules identified. No evidence for thickening. KIDNEYS: There is a 6 mm left UPJ calculus resulting in moderate left-sided hydronephrosis. There are additional left-sided renal calculi seen with the largest in the lower pole measuring 8.5 mm. Nonobs tructing lower pole renal calculus seen of the right kidney measuring 5 mm. BOWEL: Appendix has a normal appearance. No evidence of bowel obstruction. No inflammatory process. Lymph nodes: No evidence for adenopathy greater than 1 cm. Abdominal aorta: Atheromatous changes seen. No evidence for aneurysm. Genital organs: No significant abnormality. Other: No significant abnormality. IMPRESSION: There is a 6 mm left UPJ calculus resulting in moderate left-sided hydronephrosis.
[2023-02-10 16:44] LABS: Bacteria,Urine Rare /hpf; Mucus,Urine Rare /hpf; RBC,Urine 4 /hpf (0-5); WBC,Urine 6 /hpf (0-5)
[2023-02-10 17:11] LABS: Appearance,Urine Clear (Clear); Bilirubin,Urine Negative (Negative); Blood,Urine 0.1 (Negative); Color,Urine Colorless; Glucose,Urine (UA) Negative (Negative); Ketones,Urine Negative (Negative); PH, Urine 5.5 (5.0-8.0); Protein,Urine Negative (Negative); Specific Gravity,Urine 1.009 (1.001-1.035)
[2023-02-10 17:12] LABS: Leukocyte Esterase,Urine Moderate (Negative); Nitrite,Urine Negative (Negative); Urobilinogen,Urine <2.0 mg/dL (<2.0)
[2023-02-10] MEDS ORDERED: ACET/COD 300 MG/30 MG STARTER PACK 6 TAB BTL PO STA (17:23)
[2023-02-10] MEDS ORDERED: IBUPROFEN 600 MG STARTER PACK 4 TAB BTL PO STA (17:23)
[2023-02-10] MEDS ORDERED: PROCHLORPERAZINE INJ 10 MG/2 ML VIAL IVP STA (17:57)
[2023-02-10] MEDS ORDERED: HYDROmorphone 1 MG/ML 1 ML SYRINGE IVP STA (17:57)
[2023-02-10 18:49] VITALS: BP 146/72; PULSE 80; TEMP 97.9
== END 2023-02-10 18:49 | disposition home or self-care (01) ==
LOC: EC 13:00
DX: N13.2 Hydronephrosis with renal and ureteral calculous obstruction (principal); E78.5 Hyperlipidemia, unspecified; E07.9 Disorder of thyroid, unspecified; Z79.890 Hormone replacement therapy; Z79.899 Other long term (current) drug therapy; Z90.49 Acquired absence of other specified parts of digestive tract
CPT/HCPCS: 36415; 80053; 83605; 83690; 83735; 85025; 81001; 74176; 99285; 96374; 96375 ×3; 96361 ×2; J2270; J0780; J2405; J1885

== ENCOUNTER 2023-07-28 12:49 | Emergency (ER) | payer MEDICARE ==
[2023-07-28] MEDS: ONDANSETRON 4 MG/2 ML VIAL IVP STA (14:37)
--- NOTE | 2023-07-28 14:50 | ED ---
General Adult HPI - General Source: patient, RN notes reviewed Mode of arrival: ambulatory Limitations: no limitations <Omero Haque - Last Filed: 07/28/23 16:15> <Ney Gonzalez - Last Filed: 07/28/23 19:31> - General Chief complaint: Nausea/Vomiting/Diarrhea Stated complaint: NV, SOB Time Seen by Provider: 07/28/23 13:03 - History of Present Illness Initial comments: 73-year-old female presents emergency department with chief complaint of nausea, abdominal pain, flank pain, weakness, dehydration. Patient states she was recently admitted and discharged the beginning of July at [facility] for UTI sepsis. Patient states she was told she had kidney stones on the left was scheduled twice but had to cancel for other reasons. Patient states that she was discharged finish her course of antibiotics states 2 days later she developed another UTI just finished antibiotics she states she still having symptoms. Patient states that she is extremely dizzy, weak feeling. Patient denies any chest pain. (Omero Haque) - Related Data Home Medications Medication Instructions Recorded Confirmed ALPRAZolam [Xanax] 0.25 mg PO HS PRN 05/21/20 02/23/23 Atorvastatin [Lipitor] 10 mg PO HS 02/23/23 Levothyroxine Sodium [Levoxyl] 88 mcg PO QAM 02/23/23 Magnesium Oxide [Magnesium] 500 mg PO DAILY 02/23/23 Cholecalciferol (Vitamin D3) 50 mcg PO HS 07/28/23 07/28/23 [Vitamin D3 (50 Mcg = 2000 Iu)] Famotidine [Pepcid] 40 mg PO HS 07/28/23 07/28/23 Previous Rx's Medication Instructions Recorded Ciprofloxacin HCl [Cipro] 500 mg PO Q12HR #20 tablet 07/28/23 Metoclopramide HCl [Reglan] 10 mg PO Q6HR PRN #15 tablet 07/28/23 Allergies Allergy/AdvReac Type Severity Reaction Status Date / Time No Known Allergies Allergy Verified 07/28/23 19:29 Review of Systems ROS Other: All systems not noted in ROS Statement are negative. <Omero Haque - Last Filed: 07/28/23 16:15> ROS Other: All systems not noted in ROS Statement are negative. <Ney Gonzalez - Last Filed: 02/27/24 19:31> ROS Statement: Those systems with pertinent positive or pertinent negative responses have been documented in the HPI. Past Medical History Past Medical History: Cancer, GERD/Reflux, Hyperlipidemia, Thyroid Disorder Additional Past Medical History / Comment(s): Current kidney stones, has had o nce prior with no surgery. Hx palpitations with Cardiac Ablation a few yrs ago. Hx thyroid cancer about 20 yrs ago with thyroidectomy. History of Any Multi-Drug Resistant Organisms: None Reported Past Surgical History: Cardiac Ablation, Section, Cholecystectomy, Hysterectomy Additional Past Surgical History / Comment(s): Thyroidectomy, eye surgery. Past Anesthesia/Blood Transfusion Reactions: Motion Sickness, Postoperative Nausea & Vomiting (PONV) Past Psychological History: Anxiety Smoking Status: Never smoker Past Alcohol Use History: None Reported Past Drug Use History: None Reported <Omero Haque - Last Filed: 07/28/23 16:15> General Exam Limitations: no limitations General appearance: alert, in no apparent distress Head exam: Present: atraumatic, normocephalic, normal inspection Eye exam: Present: normal appearance, PERRL, EOMI. Absent: scleral icterus, conjunctival injection, periorbital swelling ENT exam: Present: normal exam, mucous membranes moist Neck exam: Present: normal inspection. Absent: tenderness, meningismus, lymphadenopathy Respiratory exam: Present: normal lung sounds bilaterally. Absent: respiratory distress, wheezes, rales, rhonchi, stridor Cardiovascular Exam: Present: normal rhythm, tachycardia, normal heart sounds. Absent: systolic murmur, diastolic murmur, rubs, gallop, clicks GI/Abdominal exam: Present: soft, normal bowel sounds. Absent: distended, tenderness, guarding, rebound, rigid Back exam: Absent: CVA tenderness (R), CVA tenderness (L) Neurological exam: Present: alert Skin exam: Present: warm, dry, intact, normal color. Absent: rash <Omero Haque - Last Filed: 07/28/23 16:15> Course <Omero Haque - Last Filed: 07/28/23 16:15> Vital Signs 07/28/23 07/28/23 07/28/23 12:52 14:36 15:45 Temperature 98.8 F 97.7 F Pulse Rate 104 H 92 Respiratory 20 18 Rate Blood Pressure 138/80 126/82 O2 Sat by Pulse 99 97 Oximetry 07/28/23 16:49 Temperature 98 F Pulse Rate 76 Respiratory 18 Rate Blood Pressure 126/74 O2 Sat by Pulse 100 Oximetry - Reevaluation(s) Reevaluation #1: 07/28/23 14:49 During a laboratory draw patient reported has syncopal episode possible seizure. Patient became very stiff, unresponsive. Patient's vitals are stable. (Omero Haque) EKG Findings - EKG Comments: EKG Findings:: EKG performed at 15: 34 sinus rhythm with rate of 73 IN 208 QRS 89 QT/QTc 399/425 - EKG Results: EKG: interpreted by ERMD <Omero Haque - Last Filed: 07/28/23 16:15> Medical Decision Making - Lab Data Result diagrams: 07/28/23 14:03 07/28/23 14:03 <Omero Haque - Last Filed: 07/28/23 16:15> - Lab Data Result diagrams: 07/28/23 14:03 07/28/23 14:03 <Ney Gonzalez - Last Filed: 07/28/23 19:31> - Medical Decision Making Was pt. sent in by a medical professional or institution (, PA, DRESSMAKER GARMENT FITTER, urgent care, hospital, or chcf...) When possible be specific @ -No Did you speak to anyone other than the patient for history (EMS, parent, family, police, friend...)? What history was obtained from this source @ -No Did you review nursing and triage notes (agree or disagree)? Why? @ -I reviewed and agree with nursing and triage notes Were old charts reviewed (outside hosp., previous admission, EMS record, old EKG, old radiological studies, urgent care reports/EKG's, chcf records)? Report findings @ -No old charts were reviewed Differential Diagnosis (chest pain, altered mental status, abdominal pain women, abdominal pain men, vaginal bleeding, weakness, fever, dyspnea, syncope, headache, dizziness, GI bleed, back pain, seizure, CVA, palpatations, mental health, musculoskeletal)? @ -Differential Abdominal Pain Women: Appendicitis, Cholecystitis, diverticulosis, ischemic bowel, pancreatitis, hepatitis, UTI, gastroenteritis, AAA, incarcerated hernia, bowel obstruction, constipation, inflammatory bowel, hepatitis, peptic ulcer disease, splenic infarction, perforated viscus, vulvitis, ovarian torsion, PID, kidney stone, placenta abruption, this is not meant to be an all-inclusive list EKG interpreted by me (3pts min.). @ -As above X-rays interpreted by me (1pt min.). @ -None done CT interpreted by me (1pt min.). @ -Pending CT U/S interpreted by me (1pt. min.). @ -None done What testing was considered but not performed or refused? (CT, X-rays, U/S, labs)? Why? @ -None What meds were considered but not given or refused? Why? @ -None Did you discuss the management of the patient with other professionals (professionals i.e. DrCaitlyn, PA, DRESSMAKER GARMENT FITTER, lab, RT, psych nurse, health and social care teacher, front end software engineer, teacher, desk officer, case assistant)? Give summary @ -No Was smoking cessation discussed for >3mins.? @ -No Was critical care preformed (if so, how long)? @ -No Were there social determinants of health that impacted care today? How? (Homelessness, low income, unemployed, alcoholism, drug addiction, transportation, low edu. Level, literacy, decrease access to med. care, senior care, rehab)? @ -No Was there de-escalation of care discussed even if they declined (Discuss DNR or withdrawal of care, Hospice)? DNR status @ -No What co-morbidities impacted this encounter? (DM, HTN, Smoking, COPD, CAD, Cancer, CVA, ARF, Chemo, Hep., AIDS, mental health diagnosis, sleep apnea, morbid obesity)? @ -None Was patient admitted / discharged? Hospital course, mention meds given and route, prescriptions, significant lab abnormalities, going to OR and other pertinent info. @ -Case signed out to Dr. Gonzalez pending results (Omero Haque) CT scan shows 7 mm left UPJ stone with hydro-. This was interpreted by myself. Patient reevaluated. Patient resting comfortably in bed. Patient and family are updated on results. Patient is comfortable discharge home. Case was discussed with Dr. Martin who would like patient to be on Cipro as well as urine culture. They will follow-up with patient this week. Diagnosis: Ureterolithiasis, acute UTI, acute on chronic Plan for discharge and follow-up. (Ney Gonzalez) - Lab Data Lab Results 07/28/23 07/28/23 07/28/23 Range/Units 14:03 14:03 14:03 WBC 8.8 (3.8-10.6) k/uL RBC 4.11 (3.80-5.40) m/uL Hgb 13.1 (11.4-16.0) gm/dL Hct 39.0 (34.0-46.0) % MCV 94.9 (80.0-100.0) fL MCH 31.8 (25.0-35.0) pg MCHC 33.5 (31.0-37.0) g/dL RDW 13.3 (11.5-15.5) % Plt Count 271 (150-450) k/uL MPV 8.0 Neutrophils % 64 % Lymphocytes % 27 % Monocytes % 4 % Eosinophils % 3 % Basophils % 1 % Neutrophils # 5.7 (1.3-7.7) k/uL Lymphocytes # 2.4 (1.0-4.8) k/uL Monocytes # 0.3 (0-1.0) k/uL Eosinophils # 0.2 (0-0.7) k/uL Basophils # 0.1 (0-0.2) k/uL Sodium 139 (137-145) mmol/L Potassium 4.6 (3.5-5.1) mmol/L Chloride 108 H (98-107) mmol/L Carbon Dioxide 23 (22-30) mmol/L Anion Gap 8 mmol/L BUN 27 H (7-17) mg/dL Creatinine 1.11 H (0.52-1.04) mg/dL Est GFR (CKD-EPI)AfAm 57 (>60 ml/min/1.73 sqM) Est GFR (CKD-EPI)NonAf 50 (>60 ml/min/1.73 sqM) Glucose 108 H (74-99) mg/dL Plasma Lactic Acid Gio (0.7-2.0) mmol/L Calcium 9.7 (8.4-10.2) mg/dL Total Bilirubin 0.7 (0.2-1.3) mg/dL AST 37 H (14-36) U/L ALT 38 H (4-34) U/L Alkaline Phosphatase 129 H (38-126) U/L Troponin I (0.000-0.034) ng/mL Total Protein 8.1 (6.3-8.2) g/dL Albumin 4.3 (3.5-5.0) g/dL Lipase 195 (23-300) U/L Urine Color Light Yellow Urine Appearance Clear (Clear) Urine pH 6.5 (5.0-8.0) Ur Specific Franklin 1.017 (1.001-1.035) Urine Protein Trace H (Negative) Urine Glucose (UA) Negative (Negative) Urine Ketones Negative (Negative) Urine Blood Trace H (Negative) Urine Nitrite Negative (Negative) Urine Bilirubin Negative (Negative) Urine Urobilinogen <2.0 (<2.0) mg/dL Ur Leukocyte Esterase Moderate H (Negative) Urine RBC 14 H (0-5) /hpf Urine WBC 37 H (0-5) /hpf Ur Squamous Epith Cells 5 H (0-4) /hpf Hyaline Casts 1 (0-2) /lpf Urine Mucus Rare H (None) /hpf 07/28/23 07/28/23 Range/Units 14:03 14:03 WBC (3.8-10.6) k/uL RBC (3.80-5.40) m/uL Hgb (11.4-16.0) gm/dL Hct (34.0-46.0) % MCV (80.0-100.0) fL MCH (25.0-35.0) pg MCHC (31.0-37.0) g/dL RDW (11.5-15.5) % Plt Count (150-450) k/uL MPV Neutrophils % % Lymphocytes % % Monocytes % % Eosinophils % % Basophils % % Neutrophils # (1.3-7.7) k/uL Lymphocytes # (1.0-4.8) k/uL Monocytes # (0-1.0) k/uL Eosinophils # (0-0.7) k/uL Basophils # (0-0.2) k/uL Sodium (137-145) mmol/L Potassium (3.5-5.1) mmol/L Chloride (98-107) mmol/L Carbon Dioxide (22-30) mmol/L Anion Gap mmol/L BUN (7-17) mg/dL Creatinine (0.52-1.04) mg/dL Est GFR (CKD-EPI)AfAm (>60 ml/min/1.73 sqM) Est GFR (CKD-EPI)NonAf (>60 ml/min/1.73 sqM) Glucose (74-99) mg/dL Plasma Lactic Acid Gio 1.3 (0.7-2.0) mmol/L Calcium (8.4-10.2) mg/dL Total Bilirubin (0.2-1.3) mg/dL AST (14-36) U/L ALT (4-34) U/L Alkaline Phosphatase (38-126) U/L Troponin I <0.012 (0.000-0.034) ng/mL Total Protein (6.3-8.2) g/dL Albumin (3.5-5.0) g/dL Lipase (23-300) U/L Urine Color Urine Appearance (Clear) Urine pH (5.0-8.0) Ur Specific Franklin (1.001-1.035) Urine Protein (Negative) Urine Glucose (UA) (Negative) Urine Ketones (Negative) Urine Blood (Negative) Urine Nitrite (Negative) Urine Bilirubin (Negative) Urine Urobilinogen (<2.0) mg/dL Ur Leukocyte Esterase (Negative) Urine RBC (0-5) /hpf Urine WBC (0-5) /hpf Ur Squamous Epith Cells (0-4) /hpf Hyaline Casts (0-2) /lpf Urine Mucus (None) /hpf Disposition <Omero Haque - Last Filed: 07/28/23 16:15> Is patient prescribed a controlled substance at d/c from ED?: No Time of Disposition: 19:30 <Ney Gonzalez - Last Filed: 07/28/23 19:31> Clinical Impression: Kidney stone, Urinary tract infection Disposition: HOME SELF-CARE Condition: Stable Instructions (If sedation given, give patient instructions): Kidney Stones (ED), Urinary Tract Infection in Women (ED) Additional Instructions: As discussed with Dr. Wade, please do follow-up with urology this week. Prescriptions have been sent to pharmacy. Return for fevers, increased pain, vomiting, worsening or changing symptoms or any other concerns. Prescriptions: Ciprofloxacin HCl [Cipro] 500 mg PO Q12HR #20 tablet Metoclopramide HCl [Reglan] 10 mg PO Q6HR PRN #15 tablet PRN Reason: Nausea Referrals: Sarai Valenzuela MD [Primary Care Provider] - 1-2 days Ethan Wade MD [STAFF PHYSICIAN] - 1-2 days
[2023-07-28 14:54] LABS: Basophils # (A) 0.1 k/uL (0-0.2); Basophils % (A) 1 %; Eosinophils # (A) 0.2 k/uL (0-0.7); Eosinophils % (A) 3 %; HGB 13.1 gm/dL (11.4-16.0); Lymphocytes # (A) 2.4 k/uL (1.0-4.8); Lymphocytes % (A) 27 %; MCH 31.8 pg (25.0-35.0); MCHC 33.5 g/dL (31.0-37.0); MCV 94.9 fL (80.0-100.0); Monocytes # (A) 0.3 k/uL (0-1.0); Monocytes % (A) 4 %; Neutrophils # (A) 5.7 k/uL (1.3-7.7); Neutrophils % (A) 64 %; Platelet Count 271 k/uL (150-450); RBC 4.11 m/uL (3.80-5.40); RDW 13.3 % (11.5-15.5); WBC 8.8 k/uL (3.8-10.6)
[2023-07-28 15:05] LABS: ALT 38 U/L (4-34); AST 37 U/L (14-36); African American GFR (CKD) 57 (>60 ml/min/1.73 sqM); Albumin 4.3 g/dL (3.5-5.0); Alkaline Phosphatase 129 U/L (38-126); Anion Gap 8 mmol/L; Blood Urea Nitrogen 27 mg/dL (7-17); Calcium 9.7 mg/dL (8.4-10.2); Carbon Dioxide 23 mmol/L (22-30); Chloride 108 mmol/L (98-107); Glucose 108 mg/dL (74-99); Lipase 195 U/L (23-300); Non-African American GFR(CKD) 50 (>60 ml/min/1.73 sqM); Potassium 4.6 mmol/L (3.5-5.1); Sodium 139 mmol/L (137-145); Total Bilirubin 0.7 mg/dL (0.2-1.3); Total Protein 8.1 g/dL (6.3-8.2)
[2023-07-28 15:07] VITALS: RESP 18
[2023-07-28] MEDS: SODIUM CHLORIDE 0.9% 1,000 ML IV STA (15:47)
[2023-07-28 17:07] LABS: Appearance,Urine Clear (Clear); Bilirubin,Urine Negative (Negative); Blood,Urine Trace (Negative); Color,Urine Light Yellow; Glucose,Urine (UA) Negative (Negative); Hyaline Casts,Urine 1 /lpf (0-2); Ketones,Urine Negative (Negative); Leukocyte Esterase,Urine Moderate (Negative); Mucus,Urine Rare /hpf; Nitrite,Urine Negative (Negative); PH, Urine 6.5 (5.0-8.0); Protein,Urine Trace (Negative); RBC,Urine 14 /hpf (0-5); Specific Gravity,Urine 1.017 (1.001-1.035); Squamous Epithelial Cell,Urine 5 /hpf (0-4); Urobilinogen,Urine <2.0 mg/dL (<2.0); WBC,Urine 37 /hpf (0-5)
[2023-07-28 17:10] VITALS: TEMP 98
--- NOTE | 2023-07-28 17:14 | CT ---
EXAMINATION TYPE: CT abdomen pelvis wo con CT DLP: 399.5 mGycm, Automated exposure control for dose reduction was used. DATE OF EXAM: 07/28/2023 5:05 PM COMPARISON: CT abdomen pelvis most recent from 02/10/2023 CLINICAL INDICATION:Female, 73 years old with history of abdominal pain; Abdominal pain TECHNIQUE: Axial CT abdomen pelvis wo con;Sagittal and coronal reformats were created on a separate workstation. Contrast used: mL of , (none if empty) Oral contrast used: without Oral Contrast (none if empty) FINDINGS: LOWER CHEST: Unremarkable ABDOMEN LIVER: Unremarkable GALLBLADDER AND BILE DUCTS: Cholecystectomy clips. PANCREAS: Unremarkable. SPLEEN: Unremarkable. ADRENAL GLANDS: Unremarkable. KIDNEYS AND URETERS: Mild left hydronephrosis secondary obstructing 7 mm calculus at the ureteropelvi c junction. There is nonobstructing calculi bilaterally measuring 7 mm in the left and 6 mm in the ri ght. PELVIS BLADDER: Unremarkable REPRODUCTIVE: Unremarkable. ABDOMEN & PELVIS STOMACH AND BOWEL: No evidence of bowel obstruction. Scattered colonic diverticulosis. PERITONEUM/RETROPERITONEUM: No evidence of pneumoperitoneum or free fluid. VASCULATURE: No evidence of aortic aneurysm. MUSCULOSKELETAL: No acute osseous abnormalities LYMPH NODES: No gross evidence for lymphadenopathy. SOFT TISSUE/ABDOMINAL WALL: Unremarkable IMPRESSION: Mild left hydronephrosis secondary obstructing 7 mm calculus at the ureteropelvic junction. This appe ars to be similar to 02/10/2023 CT. Unclear if this is the same calculus or new calculus.
[2023-07-28] MEDS: ACET/COD 300 MG/30 MG STARTER PACK 6 TAB BTL PO STA (19:43)
[2023-07-28 19:59] VITALS: BP 136/87; PULSE 79
== END 2023-07-28 19:47 | disposition home or self-care (01) ==
LOC: EC 12:49
DX: N13.6 Pyonephrosis (principal); N39.0 Urinary tract infection, site not specified; E78.5 Hyperlipidemia, unspecified; I10 Essential (primary) hypertension; E07.9 Disorder of thyroid, unspecified; F41.9 Anxiety disorder, unspecified; Z79.890 Hormone replacement therapy; Z79.899 Other long term (current) drug therapy
CPT/HCPCS: 36415; 93005; 80053; 83605; 83690; 84484; 85025; 81001; 87086; 74176; 99285; 96374; 96361; J2405

== ENCOUNTER 2023-08-11 06:01 | Day surgery (SDC) | payer MEDICARE ==
--- NOTE | 2023-08-10 14:47 | P.HPIHPCON ---
History of Present Illness H&P Date: 08/10/23 Chief Complaint: Left ureteral, bilateral renal stones This is a 73-year-old female with a history of a 7 mm left-sided UPJ stone, and bilateral renal stone. Stone at the UPJ has been present since January, patient has canceled multiple surgeries to address that stone but now is having intractable pain. Option of left-sided ureteroscopy with holmium laser was discussed with her in detail, discussed the alternative of ESWL also. Discussed this potential given that the stone has been present for 6 months that it could be impacted and I may not be able to remove the stone and at that time I will only be able to proceed with a stent. Aware the risk which includes but not limited to bleeding, infection, injury to the ureter. Risk of anesthesia was also discussed in details. She understood all the risks involved. Of note she also would like to address her right-sided renal stone at the same setting, discussed at this point we will proceed with bilateral ureteroscopy, with holmium laser lithotripsy, stone basketing and stent insertions Consent for Procedure: I have explained the operation/procedure to the patient, including the risks, benefits, side effects, alternative therapies (including not receiving the proposed treatment or service), the likelihood of the patient achieving his/her goals, and potential recuperation problems for the procedure/sedation/analgesia, as well as any blood products, if indicated. I also explained to the patient the risks, benefits and side effects of the alternatives, as well as the risks related to not receiving the proposed procedure, care, treatment, or services. Past Medical History Past Medical History: Cancer, GERD/Reflux, Hyperlipidemia, Thyroid Disorder Additional Past Medical History / Comment(s): Current kidney stones, has had once prior with no surgery. Hx thyroid cancer about 20 yrs ago with thyroidectomy. hx. cardiac ablation due to "rapid heart rate"-no further problems History of Any Multi-Drug Resistant Organisms: None Reported Past Surgical History: Cardiac Ablation, Section, Cholecystectomy, Hysterectomy Additional Past Surgical History / Comment(s): Thyroidectomy, eye surgery. naheed cataracts removed, & then ended up w/detached retinas Past Anesthesia/Blood Transfusion Reactions: Motion Sickness, Postoperative Nausea & Vomiting (PONV) Smoking Status: Never smoker - Past Family History Mother Family Medical History: Deep Vein Thrombosis (DVT) Medications and Allergies Home Medications Medication Instructions Recorded Confirmed Type Atorvastatin [Lipitor] 10 mg PO HS 02/23/23 08/06/23 History Levothyroxine Sodium [Levoxyl] 88 mcg PO DAILY 02/23/23 08/06/23 History Magnesium Oxide [Magnesium] 500 mg PO HS 02/23/23 08/06/23 History Cholecalciferol (Vitamin D3) 50 mcg PO HS 07/28/23 08/06/23 History [Vitamin D3 (50 Mcg = 2000 Iu)] Famotidine [Pepcid] 40 mg PO HS 07/28/23 08/06/23 History Acetaminophen-Codeine 300-30mg 1 - 2 tab PO Q4-6H PRN 08/06/23 08/06/23 History [Tylenol w/codeine #3] Allergies Allergy/AdvReac Type Severity Reaction Status Date / Time No Known Allergies Allergy Verified 08/06/23 15:29 Surgical - Exam - General no distress, moderate pain - Eyes normal ocular movement, no pale - ENT normal nares, normal mucosa - Respiratory normal expansion, normal respiratory effort - Abdomen Abdomen: soft, non tender - Psychiatric oriented to time, oriented to person, oriented to place Assessment and Plan Assessment: OR for bilateral ureteroscopy, holmium laser lithotripsy, stone basketing and stent insertion
[2023-08-11] MEDS: LACTATED RINGERS 1,000 ML IV SCH (06:50)
[2023-08-11 06:57] VITALS: RESP 16
[2023-08-11] MEDS: DEXAMETHASONE SOD PHOSPHATE 4 MG/ML 1 ML VIAL IV ONE (06:59)
[2023-08-11] MEDS: ONDANSETRON 4 MG/2 ML VIAL IVP ONE (06:59)
[2023-08-11] MEDS ORDERED: HYDROmorphone 0.5 MG/0.5 ML SYRINGE IVP PRN (07:00)
[2023-08-11] MEDS ORDERED: MIDAZOLAM 2 MG/2 ML VIAL ONE (07:25)
[2023-08-11] MEDS ORDERED: fentaNYL (PF) 50 MCG/ML 2 ML AMP ONE (07:25)
[2023-08-11] MEDS ORDERED: LIDOCAINE 1% INJ 10MG/ML (20 ML MDV) ONE (07:25)
[2023-08-11] MEDS ORDERED: PROPOFOL 10 MG/ML 20 ML VIAL IV ONE (07:25)
--- NOTE | 2023-08-11 07:34 | XR ---
EXAMINATION TYPE: XR KUB DATE OF EXAM: 08/11/2023 Comparison: CT 07/28/2023 Clinical History: 73-year-old female N20.1 left ureteral stone / N20.0 right renal stone Findings: Scattered mild stool wording. Nonobstructive bowel gas pattern. 7 mm nonobstructive right renal stone . Adjacent 7 mm and 6 mm stones left paramedian mid abdomen within the upper ureter. Tiny density rig ht paramedian lower abdomen seems to correspond to a tiny phlebolith on patient's CT. Cholecystectomy clips. Impression: Similar 7 mm and 6 mm adjacent stones within the upper left ureter. Nonobstructive 7 mm right renal s tone.
[2023-08-11] MEDS: IOPAMIDOL-370 100ML BTL MISCELLANE ONE (07:54)
--- NOTE | 2023-08-11 09:11 | P.OP ---
Date of Procedure: 08/11/23 Preoperative Diagnosis: Left ureteral stone, bilateral renal stones Postoperative Diagnosis: Left ureteral stone, bilateral renal stone, bladder mass Procedure(s) Performed: Cystoscopy, bilateral ureteroscopy, holmium laser lithotripsy, stone basketing stent insertion, bladder biopsy with fulguration Implants: 6 Dominican by 26 cm stent in the bilateral ureter Anesthesia: GABRIEL Surgeon: Tomasz Ho Estimated Blood Loss (ml): 5 Pathology: other (bilateral renal stone, bladder tumor) Condition: stable Disposition: PACU Indications for Procedure: This is a 73-year-old female with a history of a 7 mm left-sided UPJ stone, and bilateral renal stone. Stone at the UPJ has been present since January, patient has canceled multiple surgeries to address that stone but now is having intractable pain. Option of left-sided ureteroscopy with holmium laser was discussed with her in detail, discussed the alternative of ESWL also. Discussed this potential given that the stone has been present for 6 months that it could be impacted and I may not be able to remove the stone and at that time I will only be able to proceed with a stent. Aware the risk which includes but not limited to bleeding, infection, injury to the ureter. Risk of anesthesia was a lso discussed in details. She understood all the risks involved. Of note she also would like to address her right-sided renal stone at the same setting, discussed at this point we will proceed with bilateral ureteroscopy, with holmium laser lithotripsy, stone basketing and stent insertions Operative Findings: Left ureteral stone, with surrounding edema multiple bilateral renal stones Description of Procedure: Patient brought to the operating room, general anesthesia was induced. She was prepped and draped in sterile fashion and placed in dorsolithotomy position. Cystoscopy through the 21 Dominican sheath was inserted per urethra, cystoscopy was performed which showed a small papillary lesion just lateral to the left ureteral orifice, using the biopsy forceps the lesion was biopsied, and appearance it was not completely consistent with transitional cell carcinoma, but given the papillary features decision was made to proceed with biopsy. Area of biopsy was fulgurated. Repeat cystoscopy showed no evidence of bleeding or any additional lesions, at this point the left ureteral orifice was intubated with a sensor wire, I was able to navigate the wire past the stone into the kidney. Next an 1113 Dominican access sheath was passed over the wire into the proximal ureter, just distal to the stone. Next a flexible ureteroscope was inserted through the access sheath, using the holmium laser the stone was fragmented, sizable stone fragments were removed using the stone basket. Of note there was surrounding edema at the site of the stone, at this point the flexible ureteroscope was advanced past the stone into the kidney, 2 additional stones were encountered in the kidney, using the holmium laser, the stones were dusted, sizable stone fragments were removed using a stone basket. Repeat renoscopy showed no sizable stones or injury to the kidney, on fluoroscopy there was no radiopaque densities. Pullback ureteroscopy was performed which showed no injury to the ureter or any ureteral stones, as ureteroscope was withdrawn, a sensor wire was advanced through. Next a ureteral stent was passed over the wire, the proximal curl was visualized on fluoroscopy and the distal curl was visualized using the cystoscope. Attention was then carried to the right ureter orifice which was intubated with a sensor wire. Next an 1113 Dominican access sheath was passed over the wire and into the mid ureter, on fluoroscopy there was a questionable radiopaque density. The flexible ureteroscope was inserted through the access sheath on ureteroscopy there was no evidence of stone at the site of the radiopaque density, at this point the ureteroscope was advanced into the kidney, renoscopy was performed which showed 2 large stones within the kidney, using the holmium laser the stones were dusted, sizable stone fragments were removed using a stone basket. Repeat renoscopy showed no sizable stones or injury to the kidney. Pullback ureteroscopy was performed which showed no injury to the kidney or any ureteral stones, as ureteroscope was withdrawn and a sensor wire was advanced through. Next a ureteral stent was passed over the wire, the proximal curl was realized on fluoroscopy and the distal curl was visualized using the cystoscope. The bladder was emptied at the end of the case. Patient tolerated procedure well was taken to recovery in stable condition
[2023-08-11 09:24] VITALS: TEMP 97.6
[2023-08-11 10:35] VITALS: BP 155/89; PULSE 83
--- NOTE | 2023-08-12 10:12 | FL ---
EXAMINATION TYPE: FL guidance operating room Intraoperative/procedural fluoroscopic services were pro vided. Total fluoroscopy time is 79.0 seconds with a total of 2 submitted images to PACS. Please see the operative/procedural note for further details. DAP: [id number]
== END 2023-08-11 11:01 | disposition home or self-care (01) ==
LOC: OR 06:01
PROVIDERS: ATTEND Urology
DX: N20.2 Calculus of kidney with calculus of ureter (principal); K21.9 Gastro-esophageal reflux disease without esophagitis; E78.5 Hyperlipidemia, unspecified; E07.9 Disorder of thyroid, unspecified; Z90.710 Acquired absence of both cervix and uterus; Z90.49 Acquired absence of other specified parts of digestive tract; Z90.89 Acquired absence of other organs; Z82.3 Family history of stroke; Z79.899 Other long term (current) drug therapy; Z98.890 Other specified postprocedural states; Z98.891 History of uterine scar from previous surgery; Z79.890 Hormone replacement therapy
CPT/HCPCS: 52356; 82365; 74018; C2625; C1894; C1769 ×2; J2250; J1100; J0690; J2405; J2001; J3010; J2704; Q9967; 88305

== ENCOUNTER → 2023-12-01 | Outpatient (CLI) | payer MEDICARE ==
--- NOTE | 2023-12-01 13:43 | BD ---
EXAMINATION TYPE: Axial Bone Density DATE OF EXAM: 12/01/2023 CLINICAL HISTORY: 73 years old Female. ICD-10 CODE: Z78.0 Post menopausal Height: 66.5 in Weight: 132 lbs RISK FACTORS MEDICATIONS: Thyroid Medications: yes Which medication: Synthroid How Lon+ years EXAM MEASUREMENTS: Bone mineral densitometry was performed using the [employer] System. Bone mineral density as measured about the Lumbar spine is: ----- L1-L4(G/cm2): 0.915 T Score Values are as follows: ----- L1: -2.2 ----- L2: -2.4 ----- L3: -2.6 ----- L4: -1.9 ----- L1-L4: -2.2 Z Score Values are as follows: ----- L1: -0.3 ----- L2: -0.5 ----- L3: -0.7 ----- L4: 0.0 ----- L1-L4: -0.3 Bone mineral density has: Decreased -3.5% since study of: 10/24/2021 Bone mineral density about the R hip (g/cm2): 0.760 Bone mineral density about the L hip (g/cm2): 0.713 T Score values are as follows: -----R Neck: -2.5 -----L Neck: -2.8 -----R Total: -2.0 -----L Total: -2.3 Z Score values are as follows: -----R Neck: -0.6 -----L Neck: -0.8 -----R Total: -0.2 -----L Total: -0.6 Bone mineral density has: Decreased -2.6% since study of: 10/24/2021 FRAX%s: The graph provided illustrates a 16.9% chance for a major osteoporotic fx and a 6.0% chance f or the hips probability for fx in 10 years time. IMPRESSION: Osteoporosis (T Score less than -2.5). There is increased fracture risk and therapy is usually indicated based on age. Re-Screen 1-2 years. NOTE: T-SCORE=SD OF THE YOUNG ADULT MEAN.
--- NOTE | 2023-12-05 17:06 | MM ---
Reason for Exam: Screening (asymptomatic). Last mammogram was performed 1 year(s) and 1 month(s) ago. Patient History: Menarche at age 12. First Full-Term at age 18. Right ovary removed at age 46. Hysterectomy at age 46. Postmenopausal. Other cancer, age 58. Estrogen for 12 years, 10 months, from age 52 until age 68. 12/05/2013, Benign Core Biopsy on the right side. 10/08/2012, Benign Core Biopsy on the left side. 03/10/2007, Benign Core Biopsy on the left side. 03/10/2007, Benign Core Biopsy on the left side. Mother had breast cancer, age 40. Risk Values: Gladys 5 year model risk: 4.9%. NCI Lifetime model risk: 11.7%. Prior Study Comparison: 10/09/2016 Bilateral Screening Mammogram, [facility]. 11/20/2017 Bilateral Screening Mammogram, [facility]. 05/27/2018 Right Diagnostic Mammogram, [facility]. 12/01/2018 Bilateral Screening Mammogram, [facility]. 05/21/2020 Bilateral Diagnostic Mammogram, [facility]. 09/30/2021 Bilateral Screening Mammogram, [facility]. 11/12/2022 Bilateral MG 3D screening mammo w/cad, [facility]. Tissue Density: The breasts are heterogeneously dense, which may obscure small masses. Findings: Analyzed By CAD. Regional and grouped punctate and some heterogeneous calcifications are redemonstrated, unchanged with various clips in the left breast and one microclip in the right breast from prior biopsies. Benign vascular calcifications also present. Chronic nodularity on the left. There is no suspicious group of microcalcifications or new suspicious mass in either breast. Overall Assessment: Benign, BI-RAD 2 Management: Screening Mammogram of both breasts in 1 year. See note below in regards to patient's increased 5 year Gladys score. Patient should continue monthly self-breast exams. A clinical breast exam by your physician is recommended on an annual basis. This exam should not preclude additional follow-up of suspicious palpable abnormalities. Note on Gladys scores and lifetime risk: 1. A Gladys score greater than 3% is considered moderate risk. If this is the case, consider specialist referral to assess eligibility for a risk reducing agent. 2. If overall lifetime risk for the development of breast cancer is 20% or higher, the patient may qualify for future screening with alternating mammogram and breast MRI. Electronically signed and approved by: Lynn Vidal M.D. Radiologist
== END | disposition home or self-care (01) ==
LOC: RADBDWWP 09:55
PROVIDERS: ATTEND Family Medicine
DX: Z12.31 Encounter for screening mammogram for malignant neoplasm of breast (principal); M81.0 Age-related osteoporosis without current pathological fracture; M85.89 Other specified disorders of bone density and structure, multiple sites; Z78.0 Asymptomatic menopausal state; Z80.3 Family history of malignant neoplasm of breast
CPT/HCPCS: 77063; 77067; 77080

== ENCOUNTER → 2024-04-13 | Outpatient (CLI) | payer MEDICARE ==
--- NOTE | 2024-04-13 11:26 | XR ---
EXAMINATION TYPE: XR foot complete bilateral DATE OF EXAM: 04/13/2024 10:53 AM COMPARISON: None CLINICAL INDICATION: Female, 73 years old with history of M79.671 M79.672 M72.2 Bilat Plantar fasciit is Heel; TECHNIQUE: XR foot complete bilateral examined in the AP, oblique, and lateral projections. FINDINGS: Right: No evidence of any acute osseous pathology. Multifocal degeneration changes throughout the joints of the foot with osteophyte formation and joint space narrowing. Left: No evidence of any acute osseous pathology. Multifocal degeneration changes throughout the joints of the foot with osteophyte formation and joint space narrowing. Calcaneal plantar spurring is present. IMPRESSION: 1. No evidence of acute fracture of either lower to me. 2. 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 3. Left calcaneal plantar spurring. [facility], , 04/13/2024 11:23 AM
== END | disposition home or self-care (01) ==
LOC: RADXRMAIN 10:23
PROVIDERS: ATTEND Podiatrist Primary Podiatric Medicine
DX: M72.2 Plantar fascial fibromatosis (principal); M77.32 Calcaneal spur, left foot; M19.071 Primary osteoarthritis, right ankle and foot; M19.072 Primary osteoarthritis, left ankle and foot

== ENCOUNTER → 2024-12-15 | Outpatient (CLI) | payer MEDICARE ==
--- NOTE | 2024-12-15 15:29 | MM ---
Reason for Exam: Screening (asymptomatic). Last screening mammogram was performed 12 month(s) ago. Patient History: Menarche at age 12. First Full-Term at age 18. Right ovary removed at age 46. Hysterectomy at age 46. Postmenopausal. Other cancer, age 58. Estrogen for 12 years, 10 months, from age 52 until age 68. 12/05/2013, Benign Core Biopsy on the right side. 10/08/2012, Benign Core Biopsy on the left side. 03/10/2007, Benign Core Biopsy on the left side. 03/10/2007, Benign Core Biopsy on the left side. Mother had breast cancer, age 40. Risk Values: Gladys 5 year model risk: 4.9%. NCI Lifetime model risk: 11.0%. Prior Study Comparison: 09/30/2021 Bilateral Screening Mammogram, [facility]. 11/12/2022 Bilateral MG 3D screening mammo w/cad, [facility]. 12/01/2023 Bilateral MG 3D screening mammo w/cad, [facility]. Tissue Density: The breasts are extremely dense, which lowers the sensitivity of mammography. Findings: Analyzed By CAD. The grouped calcifications in the central margin of the bilateral breast. Recommend spot magnification views. Additional benign-appearing calcifications. Surgical clips noted. Overall Assessment: Incomplete: need additional imaging evaluation, BI-RAD 0 Management: Special View Mammogram of both breasts. . Patient should continue monthly self-breast exams. A clinical breast exam by your physician is recommended on an annual basis. This exam should not preclude additional follow-up of suspicious palpable abnormalities. Note on Gladys scores and lifetime risk: 1. A Gladys score greater than 3% is considered moderate risk. If this is the case, consider specialist referral to assess eligibility for a risk reducing agent. 2. If overall lifetime risk for the development of breast cancer is 20% or higher, the patient may qualify for future screening with alternating mammogram and breast MRI. [facility], , 12/15/2024 3:25 PM. Electronically signed and approved by: Chay Garner M.D. Radiologis
== END | disposition home or self-care (01) ==
LOC: RADMAMWWP 14:04
PROVIDERS: ATTEND Family Medicine
DX: Z12.31 Encounter for screening mammogram for malignant neoplasm of breast (principal); R92.343 Mammographic extreme density, bilateral breasts; Z78.0 Asymptomatic menopausal state; Z80.3 Family history of malignant neoplasm of breast
CPT/HCPCS: 77063; 77067

== ENCOUNTER → 2024-12-21 | Outpatient (CLI) | payer MEDICARE ==
--- NOTE | 2024-12-21 11:34 | MM ---
Reason for Exam: Additional evaluation requested from abnormal screening. Last screening mammogram was performed less than 1 month ago. Patient History: Menarche at age 12. First Full-Term at age 18. Right ovary removed at age 46. Hysterectomy at age 46. Postmenopausal. Other cancer, age 58. Estrogen for 12 years, 10 months, from age 52 until age 68. 12/05/2013, Benign Core Biopsy on the right side. 10/08/2012, Benign Core Biopsy on the left side. 03/10/2007, Benign Core Biopsy on the left side. 03/10/2007, Benign Core Biopsy on the left side. Mother had breast cancer, age 40. Risk Values: Gladys 5 year model risk: 4.9%. NCI Lifetime model risk: 11.0%. Prior Study Comparison: 12/01/2023 Bilateral MG 3D screening mammo w/cad, [facility]. 12/15/2024 Bilateral MG 3D screening mammo w/cad, [facility]. Tissue Density: The breasts are heterogeneously dense, which may obscure small masses. Findings: Analyzed By CAD. Right posterior nipple line grouped calcifications with adjacent biopsy clip have been present since 05/27/2018. No suspicious features. Left breast grouped calcifications posterior nipple line on CC view left side are not suspicious. These have also not suspicious morphology and punctate. No new suspicious masses, calcifications or distortions. Right posterior nipple line grouped calcifications with adjacent biopsy clip have been present since 05/27/2018. No suspicious features. Left breast grouped calcifications posterior nipple line on CC view left side are not suspicious. These have also not suspicious morphology and punctate. No new suspicious masses, calcifications or distortions. Overall Assessment: Benign, BI-RAD 2 Management: Screening Mammogram of both breasts in 1 year. Results were given to the patient verbally at the time of exam. Patient should continue monthly self-breast exams. A clinical breast exam by your physician is recommended on an annual basis. This exam should not preclude additional follow-up of suspicious palpable abnormalities. Note on Gladys scores and lifetime risk: 1. A Gladys score greater than 3% is considered moderate risk. If this is the case, consider specialist referral to assess eligibility for a risk reducing agent. 2. If overall lifetime risk for the development of breast cancer is 20% or higher, the patient may qualify for future screening with alternating mammogram and breast MRI. [facility], , 12/21/2024 11:12 AM. Electronically signed and approved by: Arash Pillai DO
== END | disposition home or self-care (01) ==
LOC: RADMAMWWP 10:38
PROVIDERS: ATTEND Family Medicine
DX: R92.8 Other abnormal and inconclusive findings on diagnostic imaging of breast (principal); R92.333 Mammographic heterogeneous density, bilateral breasts; Z80.3 Family history of malignant neoplasm of breast; Z78.0 Asymptomatic menopausal state
CPT/HCPCS: 77066; G0279; 77062